=== PATIENT | female | born 1950 | race Caucasian/White ===

== ENCOUNTER → 2023-06-02 16:18 | Outpatient (REF) | payer OTHER, SELFPAY ==
[2023-06-02 08:31] VITALS: BMI 36.9
[2023-06-02 09:12] LABS: % Basophils 0.3 % (0-2); % Immature Granulocytes 0.3 % (0-0.5); % Lymphocytes 36.2 % (20.5-51.1); % Monocytes 7.2 % (1.7-9.3); Absolute Eosinophils 0.2 10^3/uL (0-0.7); Absolute Lymphocytes 2.8 10^3/uL (1.2-3.4); Absolute Monocytes 0.6 10^3/uL (0.1-0.6); Absolute Neutrophils 4.1 10^3/uL (1.4-6.5); Hematocrit 38.1 % (37.0-47.0); Hemoglobin 13.4 g/dL (12.0-16.0); Mean Corp Hgb Conc. 35.2 g/dL (33.0-37.0); Mean Corpuscular Hgb 29.7 pg (27.0-31.0); Mean Corpuscular Volume 84.5 fL (81.0-99.0); Nucleated Red Blood Cells % 0 %; Platelet Count 246 10^3/uL (130-400); Red Blood Cell Count 4.51 10^6/uL (4.20-5.40); Red Cell Dist. Width 13.5 % (11.5-14.5); White Blood Cell Count 7.7 10^3/uL (4.8-10.8)
[2023-06-02 09:18] LABS: ALT (SGPT) 19 U/L (0-35); AST (SGOT) 19 U/L (14-36); Alkaline Phosphatase 88 U/L (38-126); Blood Urea Nitrogen 24 mg/dl (7-17); Calcium 9.7 mg/dl (8.4-10.2); Carbon Dioxide 23 mmol/L (22-30); Chloride 105 mmol/L (98-107); Estimated Creatinine Clearance 70 ml/min; Glucose 124 mg/dl (70-99); Potassium 4.1 mmol/L (3.5-5.1); Sodium 140 mmol/L (135-145); Total Bilirubin 0.7 mg/dl (0.2-1.3); Total Protein 6.3 g/dl (6.3-8.2); eGFR > 60.00
--- NOTE | 2023-06-02 13:15 | HPS.HSE ---
Family Physician
-
Family Physician: Marycarmen Bourgeois
Chief Complaint
-
Atrial tachycardia.
History of Present Illness
The patient is a 72 year old female presenting today for atrial tachycardia. She reports a 'racing heart beat' secondary to this diagnosis. She was previously diagnosed with atrial fibrillation and atrial flutter. She underwent pulmonary
vein isolation in 2014 at an outside facility. She also underwent an atrial fibrillation and pollo-mitral flutter ablation in September 2021 and an atrial fibrillation and typical atrial flutter ablation in January 2022 here at [facility]. Her
previous symptoms overall have improved; however her heart racing continues. Her heart rates have remained around 100 beats per minute since early last year. She is on current pharmacological therapy with Sotalol. She takes Xarelto for oral
anticoagulation. She is interested in pursuing atrial tachycardia ablation for further arrhythmia management. She denies any new complaints today such as chest pain, shortness of breath, nausea, vomiting, diarrhea, lightheadedness, dizziness, cough,
sore throat, or fever.
Medical History
Past Medical History
Past Medical History: Reports Other
Additional Past Medical History:
1. Atrial tachycardia.
2. Paroxysmal atrial fibrillation/atrial flutter, status post pulmonary vein isolation, 2014, atrial fibrillation and pollo-mitral flutter ablation, 09/2021, and atrial fibrillation and typical atrial flutter ablation 01/2022.
3. Hypertension.
4. Hyperlipidemia.
5. First degree AV block.
6. Mild valvular disease.
7. Left upper lobe pulmonary nodule.
8. Non-insulin dependent diabetes.
9. Gastroesophageal reflux disease.
10. Colon polyps.
11. Diverticulosis.
12. Hemorrhoids.
13. Chronic diarrhea.
14. Overactive bladder.
15. Hearing impairment of right ear.
16. Obesity, BMI 36.9.
17. Remote history of tobacco abuse.
Past Surgical History: Reports Other
Additional Past Surgical History:
1. Atrial fibrillation and typical atrial flutter ablation.
2. Atrial fibrillation and pollo-mitral flutter ablation.
3. Pulmonary vein isolation.
4. Multiple cardioversions.
5. Cholecystectomy.
6. Bilateral tubal ligation.
7. D&C, hysteroscopy, endometrial polypectomy.
8. Multiple colonoscopies.
9. Endoscopy.
Social History
Tobacco: Former Smoker (Former 2 pack per day cigarette smoker who quit tobacco altogether in 1989. )
Alcohol: Other (Rare)
Living: Other (She lives in a 1 story home with a loft independently. )
Family History
Family History: Not pertinent
Allergies / Home Medications
Allergy/Medication List:
1. VESIcare 10 mg p.o. daily.
2. Vascepa 2 gm p.o. twice a day.
3. Calcium 1 tablet p.o. daily.
4. Metformin 500 mg p.o. at 6 PM.
5. Jardiance 25 mg p.o. daily.
6. Sotalol 120 mg p.o. twice a day.
7. Culturelle 1 capsule p.o. daily.
8. Atorvastatin 40 mg p.o. every evening.
9. Xarelto 20 mg p.o. every evening.
10. Losartan 50 mg p.o. daily.
11. Vitamin C 1 tablet p.o. daily.
�
Allergies: No known drug allergies.
Review of Systems
-
A 12 point ROS was completed and negative except as noted: Yes
Physical Exam
Vital Signs
Blood pressure 135/84. Heart rate 103. Respirations 18. Pulse ox 98% on room air.
Height 5 feet, 4 inches. Weight 97.4 kg. BMI 36.9.
Physical Exam
General: Well Developed, Well Nourished and No Apparent Distress
HEENT: NormoCephalic, Moist mucous membranes, Atraumatic and PERRLA
Respiratory: Clear
Cardiac: Tachycardia
GI: Soft, Non Tender, Non Distended and Other (Obese. )
Musculoskeletal: Normal Gait & Station
Skin: Warm and Dry
Neuro: AO x 3 and Nonfocal/grossly intact
Laboratory Results
-
06/02/23 08:47
06/02/23 08:47
Laboratory Results
Total Bilirubin 0.7 mg/dl (0.2-1.3) 06/02/23 08:47
AST 19 U/L (14-36) 06/02/23 08:47
ALT 19 U/L (0-35) 06/02/23 08:47
Alkaline Phosphatase 88 U/L (38-126) 06/02/23 08:47
EKG 06/02/2023: Atrial tachycardia with first degree AV block. ST and T wave abnormality, consider anterior ischemia.
Nuclear stress test 06/28/2021: Perfusion imaging is within normal limits. Ejection fraction is 57%. This is a moderate risk study due to the pharmacologic agent used.
Echocardiogram 05/21/2021: Normal biventricular size and systolic function without regional wall motion abnormality. Mild to moderate mitral regurgitation. Mild�aortic stenosis. Mild to moderate, eccentric tricuspid regurgitation with mild pulmonary
hypertension.
Impression/Plan
-
IMPRESSION/PLAN:
1. Atrial tachycardia: The patient is in need of an atrial tachycardia ablation with Dr. Nisa Chacon on 06/04/2023. The benefits and risks of the procedure have been explained to the patient. The patient understands these risks and wishes to
proceed. She will hold her Xarelto at the discretion of her surgeon pre-operatively.
== END ==
LOC: SDSPAT 16:18
PROVIDERS: ATTENDING PHYSICIAN Internal Medicine Cardiovascular Disease; FAMILY PHYSICIAN Family Medicine
DX: I47.19 Other supraventricular tachycardia (principal)
CPT/HCPCS: 36415; 80053; 85025; 93005

== ENCOUNTER → 2024-01-28 13:42 | Outpatient (REF) | payer OTHER, SELFPAY | LOC: RCS 13:42 | PROVIDERS: ATTENDING PHYSICIAN Internal Medicine Cardiovascular Disease; FAMILY PHYSICIAN Family Medicine | DX: I48.0 Paroxysmal atrial fibrillation (principal) | CPT/HCPCS: 93306 ==

== ENCOUNTER 2024-09-08 14:24 | Emergency (ER) | payer OTHER, SELFPAY ==
[2024-09-08 14:33] VITALS: BP 179/77
[2024-09-08 15:57] LABS: % Basophils 0.3 % (0-2); % Eosinophils 1.2 % (0-6); % Immature Granulocytes 0.6 % (0-0.5); % Lymphocytes 22.8 % (20.5-51.1); % Monocytes 8.4 % (1.7-9.3); % Neutrophils 66.7 % (42.2-75.2); Absolute Eosinophils 0.1 10^3/uL (0-0.7); Absolute Immature Granulocytes 0.1 10^3/uL (0-0.05); Absolute Lymphocytes 2.7 10^3/uL (1.2-3.4); Absolute Neutrophils 7.8 10^3/uL (1.4-6.5); Hematocrit 40.3 % (37.0-47.0); Hemoglobin 13.7 g/dL (12.0-16.0); Mean Corpuscular Volume 85.2 fL (81.0-99.0); Mean Platelet Volume 8.7 fL (7.4-10.4); Nucleated Red Blood Cells % 0 %; Platelet Count 243 10^3/uL (130-400); Red Blood Cell Count 4.73 10^6/uL (4.20-5.40); Red Cell Dist. Width 13.5 % (11.5-14.5); White Blood Cell Count 11.8 10^3/uL (4.8-10.8)
[2024-09-08 16:07] VITALS: BP 146/118
[2024-09-08 16:10] LABS: INR 1.14; PT 15.1 Sec (11.4-14.6)
[2024-09-08 16:11] LABS: ALT (SGPT) 17 U/L (0-35); AST (SGOT) 18 U/L (14-36); Albumin 4.7 g/dl (3.5-5.0); Alkaline Phosphatase 112 U/L (38-126); Blood Urea Nitrogen 19 mg/dl (7-17); Calcium 9.6 mg/dl (8.4-10.2); Carbon Dioxide 27 mmol/L (22-30); Chloride 104 mmol/L (98-107); Glucose 85 mg/dl (70-99); Potassium 4.2 mmol/L (3.5-5.1); Sodium 141 mmol/L (135-145); Total Bilirubin 0.9 mg/dl (0.2-1.3); Total Protein 7.2 g/dl (6.3-8.2); eGFR > 60.00
[2024-09-08 16:23] LABS: Troponin I < 0.012 ng/ml
[2024-09-08 17:09] VITALS: BP 155/95
--- NOTE | 2024-09-08 17:13 | ED.GENMED ---
History of Present Illness
General
Chief Complaint: Chest Pain
Source: patient
Time Seen by Provider: 09/08/24 15:44
History of Present Illness
History of Present Illness:
74-year-old female presents with 2 days of chest pain. Patient states that the pain started 2 days ago but noticed it again last night around 10 PM. She states she took 2 Tylenol was able to go to sleep but woke up around 1:00 with the pain. She
states the pain has not gone away at all since 10 PM last night. Patient states that it is worse when she lays on her left side or if she takes a deep breath or moves. Still left the sternum and the upper chest. She also reports feeling in her
back in the same area. She states when she rotates her shoulder blades outward that the pain seems to be better. No rash. No fevers. No leg swelling. No pleuritic pain. No recent travel. No hemoptysis. No injury. She does state when she
lays on the left side it hurts and she typically does lay on the left side.
Past History
Past History
ED Past Medical History: Arrthythmia (Atrial fibrillation), Hypercholesterolemia and NIDDM
Phy Exam
Physical Exam
Physical Exam:
CONSTITUTIONAL Patient alert and oriented to person, place and time. Well-appearing. Vital signs reviewed.
HEAD atraumatic, normocephalic.
EYES eyelids normal to inspection, Extraocular muscles intact, Conjunctiva normal, Sclera normal.
NECK normal range of motion, Trachea midline, no jugular venous distention.
RESPIRATORY CHEST No respiratory distress noted, Chest expansion equal, Bilateral breath sounds clear. No rash. Moderate tenderness noted to the left upper chest wall at the costochondral margins of ribs 2 3 and 4
CARDIOVASCULAR regular rate and rhythm, Heart sounds normal.
ABDOMEN abdomen nontender, Bowel sounds normal. No distention.
BACK normal inspection, no obvious deformities
UPPER EXTREMITY range of motion normal, Motor strength normal, no cyanosis, no edema.
LOWER EXTREMITY range of motion normal, Motor strength normal, no cyanosis, no edema.
NEURO Speech normal, No focal motor deficits, Gage coma scale 15, Memory normal, Cranial Nerves intact to screening exam.
SKIN skin warm, dry, and normal in color.
Scores
Heart Score for Chest Pain Patients
STEMI patient?: No
History: Slightly or Non-Suspicious
ECG: Normal
Age: >/= 65 years
Risk Factors: 1 or 2 Risk Factors
Troponin: </= Normal Limit
Heart Score for Chest Pain Patients: 3
Heart Score Risk: 2.5% MACE over next 6 weeks
Course
Orders/Labs/Results
Orders:
Orders
09/08/24 14:25
Electrocardiogram (*1) Urgent
Reason for Study: Chest Pain
EKG- Treatment ONCE
09/08/24 15:49
Complete Blood Count/With Diff Urgent
Comprehensive Metabolic Panel Urgent
PT/INR [Prothrombin Time] Urgent
Troponin I Urgent
09/08/24 15:54
CR Chest - 2 Views Urgent
Comment:
Reason For Exam: cp
09/08/24 17:14
Ketorolac [Toradol] 15 mg IV NOW STA
Abnormal Lab Results
09/08/24
15:49
WBC 11.8 H 10^3/uL
(4.8-10.8)
Abs Immat Gran (auto) 0.1 H 10^3/uL
(0-0.05)
Absolute Neuts (auto) 7.8 H 10^3/uL
(1.4-6.5)
Absolute Monos (auto) 1.0 H 10^3/uL
(0.1-0.6)
Immature Gran % 0.6 H %
(0-0.5)
PT 15.1 H Sec
(11.4-14.6)
BUN 19 H mg/dl
(7-17)
09/08/24 15:49
09/08/24 15:49
Vital Signs
Initial and Last Documented VS:
Initial Vital Signs
Temp Pulse Resp BP Pulse Ox
98.5 F 71 18 179/77 99
09/08/24 14:33 09/08/24 14:33 09/08/24 14:33 09/08/24 14:33 09/08/24 14:33
Last Documented Vital Signs
Temp Pulse Resp BP Pulse Ox
98.5 F 75 34 155/95 97
09/08/24 14:33 09/08/24 17:15 09/08/24 17:15 09/08/24 17:09 09/08/24 16:15
MDM/Problems Addressed
Differential Diagnosis Includes:
Musculoskeletal chest pain, ACS, PE, aortic dissection, pneumothorax, pneumonia, shingles
MDM/Problems Addressed:
Chest pain, suspected musculoskeletal cause
*Radiology
Radiology exam reviewed: all reviewed NAD by ED Provider
*Pulse Oximetry
Patient hypoxic: no
*EKG
Interpreted by ED Provider?: Yes
Interpretation: abnormal
Rate: normal
Rhythm: sinus
Ischemia: non-specific ST changes
*Academic Advisement Director Interpretation
Rate: normal
Interpretation: normal
Rhythm: sinus
*Critical Care Note
Total Time (30-74mins, 75-104mins- exclusive of procedures): Not Applicable
Data Reviewed
Source: patient
Further Testing Considered But Not Given:
Consider D-dimer patient is already anticoagulated
Patient Management
Escalation/DeEscalation of care consider admission/obs:
Troponin negative despite pain since 10 PM last night. EKG unremarkable and chest x-ray negative. Clearly worse with certain positions and clearly improved in other positions. She is tender as well and I do suspect musculoskeletal etiology.
Already anticoagulated on Xarelto. Will advise Tylenol as needed and outpatient PCP follow-up
ED Attending Note
-
Portions of this chart may have been created with voice recognition software.� Occasional wrong word or��sound alike� substitutions may have occurred due to the inherent limitations of voice recognition software.
Discharge Plan
Departure
Patient Disposition: Home (Routine Discharge)
Date of Disposition: 09/08/24
Time of Disposition: 17:19
Patient with high blood pressure during this ER visit?: Yes
Discharge Problem:
Chest pain
Instructions: Chest Pain PCP Follow Up, BLOOD PRESSURE
Prescriptions:
No Action
atorvastatin 40 MG tablet
40 mg PO QPM
Patient Comments:
MEDICATION LIST OBTAINED FROM MOST RECENT CARDIAC OFFICE NOTE DATED 02/18/23.
solifenacin [Vesicare] 10 MG tablet
10 mg PO DAILY
Patient Comments:
MEDICATION LIST OBTAINED FROM MOST RECENT CARDIAC OFFICE NOTE DATED 02/18/23.
Xarelto 20 MG tablet
20 mg PO QPM
Patient Comments:
MEDICATION LIST OBTAINED FROM MOST RECENT CARDIAC OFFICE NOTE DATED 02/18/23.
losartan 25 MG tablet
50 mg PO DAILY
Patient Comments:
MEDICATION LIST OBTAINED FROM MOST RECENT CARDIAC OFFICE NOTE DATED 02/18/23.
metformin 500 mg Tablet
500 mg PO 1800
Patient Comments:
MEDICATION LIST OBTAINED FROM MOST RECENT CARDIAC OFFICE NOTE DATED 02/18/23.
sotalol 120 mg Tablet
120 mg PO BID
Patient Comments:
MEDICATION LIST OBTAINED FROM MOST RECENT CARDIAC OFFICE NOTE DATED 02/18/23.
icosapent ethyl [Vascepa] 1 gram Capsule
2 g PO BID
Patient Comments:
MEDICATION LIST OBTAINED FROM MOST RECENT CARDIAC OFFICE NOTE DATED 02/18/23.
Jardiance 25 mg Tablet
25 mg PO DAILY
Patient Comments:
MEDICATION LIST OBTAINED FROM MOST RECENT CARDIAC OFFICE NOTE DATED 02/18/23.
[facility] 10 billion cell -200 mg Capsule
1 cap PO DAILY
Patient Comments:
MEDICATION LIST OBTAINED FROM MOST RECENT CARDIAC OFFICE NOTE DATED 02/18/23.
Vitamin C
1 tab PO DAILY
calcium
1 tab PO DAILY
Referrals:
Marycarmen Bourgeois MD [Family Provider] -
Activity Restrictions/Additional Instructions:
Please see your doctor in the next 2 to 3 days for follow-up and reevaluation. Return visit for shortness of breath, worsening pain or any other concerns. Use Tylenol as needed for pain. Use incentive spirometry 10 times per hour while awake
Interventions
Interventions:
*Risk Screen - Suicide Last Done: 09/08/24 14:33
*General Assessment Last Done: 09/08/24 14:33
*Neglect/Abuse Screening Last Done: 09/08/24 14:33
*ED- Fall Risk Assessment Last Done: 09/08/24 14:33
*ED COVID-19 Vaccine History Last Done: 09/08/24 14:33
*Nursing Disposition Last Done: 09/08/24 18:29
ED- Cardiac Assessment Last Done: 09/08/24 15:53
Discharge Date and Time
Discharge Date/Time: 09/08/24 18:30
Print Language: GAMBIAN
[2024-09-08] MEDS: TORADOL 15 MG IV (17:26)
== END 2024-09-08 18:30 | disposition home or self-care (01) ==
LOC: EMR 14:24
PROVIDERS: Emergency Medicine; EMERGENCY PHYSICIAN Emergency Medicine; FAMILY PHYSICIAN Family Medicine
DX: R07.89 Other chest pain (principal); I48.91 Unspecified atrial fibrillation; E78.00 Pure hypercholesterolemia, unspecified; E11.9 Type 2 diabetes mellitus without complications
CPT/HCPCS: 99283; 96374; 71046; 80053; 84484; 85025; 85610; 93005

== ENCOUNTER → 2024-12-06 12:47 | Outpatient (REF) | payer OTHER, SELFPAY | LOC: RCS 12:47 | PROVIDERS: ATTENDING PHYSICIAN Internal Medicine Cardiovascular Disease; FAMILY PHYSICIAN Family Medicine | DX: I48.0 Paroxysmal atrial fibrillation (principal); R07.9 Chest pain, unspecified | CPT/HCPCS: 93306 ==

== ENCOUNTER → 2024-12-16 08:24 | Outpatient (REF) | payer OTHER, SELFPAY | LOC: RCS 08:24 | PROVIDERS: ATTENDING PHYSICIAN Internal Medicine Cardiovascular Disease; FAMILY PHYSICIAN Family Medicine | DX: R07.9 Chest pain, unspecified (principal) | CPT/HCPCS: 78452; 93017; A9500; J2785 ==